=== PATIENT | male | born 1965 | race Caucasian/White ===

== ENCOUNTER 2016-03-03 10:35 | Day surgery (SDC) | payer BC, OTHER ==
[2016-01-30 13:37] VITALS: BMI 53.0
--- NOTE | 2016-03-02 19:02 | HISTORY & PHYSICAL EXAMINATION ---
DATE OF ADMISSION: 03/03/2016 CHIEF COMPLAINT: Right knee pain. HISTORY OF PRESENT ILLNESS: This is a 50-year-old male patient of Dr. Preston'kari complaining of right knee pain for approximately 3 months now. The patient's knee popped out when he got out of a chair 3 months ago. He has failed conservative treatment including intra-articular injections, anti-inflammatories and an MRI revealed that he has a lateral and medial meniscal tear with arthritis. The patient wishes to proceed with an arthroscopic right knee surgery. PAST MEDICAL HISTORY: Spine problems, sciatica, kidney stones and obesity. Otherwise, no heart or lung problems. SOCIAL HISTORY: Nonsmoker, nondrinker. PAST SURGICAL HISTORY: Right knee scope. FAMILY HISTORY: Noncontributory. REVIEW OF SYSTEMS: The patient complains of chronic right knee pain. Otherwise denies any shortness of breath, chest pain, nausea, vomiting or any other joint complaints. MEDICATIONS: Include; meloxicam 15 mg daily, Androderm patch 4 mg daily, fish oil 1200 mg daily and multivitamin daily. ALLERGIES: PREDNISONE. PHYSICAL EXAMINATION: GENERAL: Well-developed, well-nourished 50-year-old male in no acute distress. He is alert, oriented x3 and pleasant. HEENT: Normocephalic, atraumatic. Extraocular motions are intact. Pupils are equal and reactive to light. HEART: Regular rate and rhythm, no murmurs are appreciated. LUNGS: Clear. ABDOMEN: Soft and nontender, bowel sounds are present. EXTREMITIES: Right knee reveals limited range of motion of 0-90 degrees. He is morbidly obese. He has lateral joint line tenderness and medial joint line tenderness. His ligaments appear stable; however, he is obese as this is limited. NEUROLOGIC: Neurovascularly he is intact in his lower extremity with 5/5 strength. DIAGNOSES: Right knee medial and lateral meniscal tears with a history of spine problems, sciatica, obesity and kidney stones. PLAN: The patient was advised of his diagnoses. Indications, risks, benefits and postop course have all been reviewed. The patient wishes to proceed with a right knee arthroscopic partial lateral meniscectomy, chondroplasty and possible medial meniscectomy. Necessary consent forms, preoperative testing and clearances were obtained.
[~2016-03-03] VITALS: Ht 185.4 cm; Wt 183.8 kg
[~2016-03-03 10:35] MED LIST: CEFAZOLIN 3000 MG/65 ML D5W IV SCH; FENTANYL CITRATE INJ 50 MCG/1 ML 2 ML VIAL ONE; LACTATED RINGER'S 1000ML 1,000 ML IV SCH; MELO7.5T5 PO; MIDAZOLAM HCL 1 MG/ML 2ML VIAL ONE; MULT-506 PO; OMEG10007 PO; TEST1DIS TOP
[2016-03-03 10:48] VITALS: BMI 53.0
[2016-03-03 10:49] VITALS: BP 133/81; PULSE 86; TEMP 36.7; O2SAT 97; Ht 185.4 cm; Wt 183.8 kg
[2016-03-03] MEDS ORDERED: MIDAZOLAM HCL 1 MG/ML 2ML VIAL ONE (11:10)
[2016-03-03] MEDS ORDERED: PROPOFOL IV EMULSION 10 MG/ML 20 ML VIAL IV ONE (11:49)
[2016-03-03] MEDS ORDERED: LIDOCAINE HCL 2% 2 ML VIAL (20MG/ML) ONE (11:49)
[2016-03-03] MEDS ORDERED: SUCCINYLCHOLINE CHLORIDE 20 MG/ML 10 ML VIAL IV ONE (12:51)
[2016-03-03] MEDS ORDERED: ROCURONIUM BROMIDE 10 MG/ML 5 ML VIAL ONE (12:51)
[2016-03-03] MEDS ORDERED: ALBUT/IPRATROP 3MG/0.5MG NEB 3 ML VIAL INH ONE (13:00)
[2016-03-03 13:03] VITALS: PULSE 79; O2SAT 98
--- NOTE | 2016-03-03 13:08 | History & Physical Bridge Note ---
H&P Re-Evaluation Bridge Note: I have examined the patient, reviewed the History & Physical and in the interval since the performance of the History & Physical I have noted the following changes of clinical significance: No changes noted
[2016-03-03] MEDS ORDERED: PHENYLEPHRINE 100MCG/ML 5ML SYR IV PRN (13:15)
[2016-03-03] MEDS ORDERED: ONDANSETRON INJ 2 MG/ML 2 ML VIAL IV PRN ×2 (13:15→14:15)
[2016-03-03] MEDS ORDERED: HYDROmorphone INJ 2 MG/ML SYR/VIAL IV PRN (13:15)
[2016-03-03] MEDS ORDERED: EpHEDrine SULFATE INJ 50 MG/ML AMP IV PRN (13:15)
[2016-03-03] MEDS ORDERED: ATROPINE SULFATE 0.1 MG/ML 5ML SYR IV PRN (13:15)
[2016-03-03] MEDS ORDERED: ONDANSETRON INJ 2 MG/ML 2 ML VIAL ONE (13:42)
[2016-03-03] MEDS ORDERED: FENTANYL CITRATE INJ 50 MCG/1 ML 2 ML VIAL ONE (14:07)
[2016-03-03] MEDS ORDERED: SODIUM CHLORIDE 0.9% 1000ML 1,000 ML IV SCH (14:12)
[2016-03-03] MEDS ORDERED: HYDROCODONE/ACETAMOPHEN 5/325MG TAB PO PRN ×2 (14:15)
[2016-03-03] MEDS ORDERED: HYDR-5688 PO (14:21)
[2016-03-03] MEDS ORDERED: CLB200 PO (14:21)
[2016-03-03] MEDS ORDERED: ASPEC81 PO (14:21)
--- NOTE | 2016-03-03 14:23 | Discharge Instructions ---
Discharge Instructions Admission Reason for Admission: Right Knee Lateral Meniscus Tear Discharge Discharge Diagnosis / Problem: Right knee scope partial medial menisectomy, partial lateral menisectomy. Discharge Goals Goal(s): Improve function Activity Recommendations Activity Limitations: as noted below . Instructions / Follow-Up Instructions / Follow-Up Please see Post Op Knee Instruction Sheet printed in chart Begin PT as ordered with in 3-4 days post op. Current Hospital Diet Patient's current hospital diet: Discharge Diet Recommended Diet: Regular Diet Procedures Procedures Performed: Right Knee Arthroscopy, Partial Lateral Menisectomy, Chondroplasty, Partial Medial Menisectomy Pending Studies Studies pending at discharge: no Medical Emergencies . Who to Call and When: Medical Emergencies: If at any time you feel your situation is an emergency, please call 911 immediately. . Non-Emergent Contact Non-Emergency issues call your: Primary Care Provider . "Provider Documentation" section prepared by Paul Barber. VTE Core Measure Inpt VTE Proph given/why not?: SCD's
[2016-03-03] MEDS ORDERED: NEOSTIGMINE METHYLSULFATE 5 MG/5 ML SYR ONE (14:28)
[2016-03-03] MEDS ORDERED: GLYCOPYRROLATE INJ 0.2 MG/ML VIAL ONE (14:28)
[2016-03-03] MEDS ORDERED: BUPIVACAINE/EPINEPHRINE 0.5% MPF 1:200,000 30 ML VIAL INJ ONE (14:30)
--- NOTE | 2016-03-03 14:58 | [facility] Operative Report ---
Operative Report Operative Date Mar 03, 2016. Pre-Operative Diagnosis Right knee medial and lateral meniscal tears Post-Operative Diagnosis same djd tricompartmental large chondral lesion medial femoral condyle... Procedure(s) Performed arthroscopy of right knee with 3 compartment chondroplasty partial lateral meniscectomy Surgeon Dr. Gustavo Preston Carriage Operator Surgeon(s) none Estimated Blood Loss 2 ML Specimens none per surgeon Drains none Anesthesia general ,local Complication(s) None Disposition Recovery Room / PACU Indications failed conservative care I attest to the content of the Intraoperative Record and any orders documented therein. Any exceptions are noted below.
--- NOTE | 2016-03-03 15:21 | Anesthesiology Progress Note ---
Anesthesia Post Op Note Date & Time Mar 03, 2016 at 15:21 Vital Signs Pain Intensity: 2 Vital Signs Past 12 Hours Date Time Temp Pulse Resp B/P Pulse Ox O2 Delivery O2 Flow Rate FiO2 03/03/16 15:10 60 12 120/79 100 Room Air 03/03/16 15:00 64 13 115/54 100 Room Air 03/03/16 14:50 70 20 115/79 100 Mask 10 03/03/16 14:40 36.2 84 20 125/77 100 Mask 10 03/03/16 13:03 79 16 98 Room Air 03/03/16 10:49 36.7 86 20 133/81 97 Room Air Notes Mental Status: alert / awake / arousable, participated in evaluation Pt Amnestic to Procedure: Yes Nausea / Vomiting: adequately controlled Pain: adequately controlled Airway Patency, RR, SpO2: stable & adequate BP & HR: stable & adequate Hydration State: stable & adequate Anesthetic Complications: no major complications apparent
[2016-03-03 15:30] VITALS: BP 126/76; PULSE 57; TEMP 36.6; O2SAT 98
[2016-03-03 16:00] VITALS: BP 134/80; PULSE 70; TEMP 36.7; O2SAT 98
[2016-03-03 16:30] VITALS: BP 127/76; PULSE 69; TEMP 36.7; O2SAT 98
--- NOTE | 2016-03-03 18:52 | OPERATIVE REPORT ---
DATE OF OPERATION: 03/03/2016 INDICATION FOR PROCEDURE: The patient is a 50-year-old male presents with right knee pain, failed conservative management including injections and exercise program. He is a morbid obese individual. He has a history of knee arthroscopy in the past. Because of ongoing pain and radiographs demonstrating that he is not [id number] in any views, we did obtain an MRI which demonstrated complex lateral meniscus tear, intrameniscal degenerative changes of medial meniscus, possible horizontal cleavage tear there and some DJD. He is morbidly obese with BMI of 53.5. The patient is still an active individual and having unremitting knee pain and is presenting for arthroscopic management at this time. PREOPERATIVE DIAGNOSES: Right knee lateral meniscus tear, degenerative joint disease, medial meniscus intrameniscal degeneration, possible tear, and morbid obesity, BMI of 53.5. POSTOPERATIVE DIAGNOSES: Right knee complex lateral meniscus tear, tricompartmental degenerative joint disease with large delaminating chondral lesion medial femoral condyle with an intact medial meniscus with intrameniscal degenerative changes and morbid obesity with a BMI of 53.5. PROCEDURE: Right knee arthroscopy, partial lateral meniscectomy, tricompartmental chondroplasty, increased difficulty due to BMI of 53.5. SURGEON: Dr. Preston. CONVEYOR ATTENDANT: None. ANESTHESIA: General. OPERATIVE PROCEDURE: The patient was taken to the operating room and anesthetized under general anesthetic. The patient had a very large leg. He also had abdominal obesity, we had to retract his abdomen so we could fully expose the upper thigh, retraction of the fat on the thigh and then placed a pneumatic tourniquet about the right upper thigh. His right lower extremity was examined and then he had some small scars from about the right knee and he had venous stasis changes in both legs, but his left leg was greater than his right and he had generalized obesity with morbid obesity consistent with his BMI of 53.5. After heavy leg as well. We used a lateral pose for retraction and then we sterilely prepped and draped the leg with ChloraPrep. Leg was elevated, exsanguinated with Esmarch bandage. Pneumatic tourniquet was raised to 350 mmHg. Arthroscopy was performed using inferomedial and inferolateral arthroscopy portals following findings noted. In the patellofemoral joint, the patient had some grade 2 and 3 wear on the patella. No exposed bone. The trochlear groove had global grade 3 wear that being close to grade 4 wear but no particular exposed bone. The delaminating flaps around the edges of the large chondral lesion which compromised the majority of the trochlear groove. In the medial compartment, there was a large thick delaminating chondral lesion of the medial femoral condyle in the weightbearing surface in the mid medial femoral condyle area but extending all the way to the medial side of the femoral condyle. There was a large lesion was about 2 cm wide about a cm anterior to posterior. There was a solid step off and some of the edges were still delaminating back and some of the edges were firm and vertical. There was still fine layer of articular cartilage on the bone still with no adeola exposed bone on the femoral condyle. Tibial plateau still had some good articular surface throughout, tibial plateau with some few areas of grade 2 chondromalacia noted. The meniscus was probed and noted to be stable and had some intrameniscal degenerative type appearance to it on probing, but there was no type 3 breakthroughs of any of the meniscus that was not any repairable meniscus tissue. The ACL and PCL were intact and the notch was large tibial spine osteophytes. In the lateral compartment, he had a complex lateral meniscus tear, there was 1 thin flap of the anterior horn of the lateral meniscus was torn. There was a complex posterior horn tear with the upper surface of the meniscus delaminating off the inferior surface with large displaceable flaps underlying the posterior femoral condyle and the upper flaps flipped over the top of themselves on the superior surface of the lateral meniscus. There was some undersurface synovitis. There was continuity of the posterior to the anterior horn, but in the mid section this tear was almost a horizontal cleavage pattern and somewhat fixed that into the anterior horn. The mid lateral tibial plateau had grade 4 DJD wear with some surrounding grade 3 areas of fraying. The femoral condyle had grade 2-3 wear on the femoral condyle. No exposed bone on the lateral femoral condyle. Attention was first taken to the medial compartment and the large delaminating flaps removed off the femoral condyle and we made a stable debridement to stable edges, which were vertical edges. I left the cartilage that was still on the base of the lesion intact. All of those loose delaminated pieces were removed. Then attention was taken to the lateral meniscus tear. The loose flaps were all debrided back to intact, but still degenerative meniscus tissue. We used basket punches as well as a 4-5 resector blade and a 3-5 angled incisor blade to remove these fragments. Anterior horn was contoured back to a stable edge. All loose fragments were removed. We also did some chondroplasty of the grade 3 areas, around the grade 4 areas of the lateral tibial plateau area. No treatment was performed to the femoral condyle surface. Attention was then taken to the trochlear groove and all the areas of grade 3 wear were treated with a chondroplasty using a 4-5 resector blade to smooth down all these frayed areas and as well as the frayed areas on the patella that were grade 3. Knee was then copiously irrigated free of all debris. Then the knee joint was injected with 30 mL of Marcaine with epinephrine. Port sites were closed with nylon sutures. Sterile dressings were applied including a Xeroform, 4 x 4s, ABDs, sterile Webril and Jaun wrap from the foot to thigh. Tourniquet was let down. The patient tolerated the procedure well. I attest to the content of the Intraoperative Record and any orders documented therein. Any exceptio ns are noted below.
== END 2016-03-03 16:45 | disposition home or self-care (01) ==
LOC: C.ACU 10:35
PROVIDERS: ATTEND Orthopaedic Surgery Sports Medicine
DX: M23.201 Derangement of unspecified lateral meniscus due to old tear or injury, left knee (principal); M17.9 Osteoarthritis of knee, unspecified; M54.30 Sciatica, unspecified side; N20.0 Calculus of kidney; E66.01 Morbid (severe) obesity due to excess calories; Z68.43 Body mass index [BMI] 50.0-59.9, adult